=== PATIENT | female | born 1965 | race Caucasian/White ===

== ENCOUNTER → 2020-01-28 | Outpatient (CLI) | payer OTHER | LOC: LAB 12:03 | DX: Z20.828 Contact with and (suspected) exposure to other viral communicable diseases (principal) ==

== ENCOUNTER → 2021-12-12 | Outpatient (CLI) | payer OTHER ==
[2021-12-12 08:14] LABS: HEMATOCRIT 45.2 % (37.0-47.0); HEMOGLOBIN 15.3 g/dL (12.5-16.0); MEAN PLATELET VOLUME 9.9 fl (7.4-10.4); RED BLOOD COUNT 4.9 M/mm3 (4.10-5.30); RED CELL DISTRIBUTION WIDTH 13.3 % (11.5-14.5); WHITE BLOOD COUNT 9.2 K/mm3 (4.8-10.8)
[2021-12-12 08:15] LABS: ALBUMIN 4.4 g/dL (3.5-5.0); POTASSIUM 4.5 mmol/L (3.5-5.1)
[2021-12-12 08:18] LABS: TOTAL PROTEIN 7.2 g/dL (6.4-8.3)
[2021-12-12 08:20] LABS: TOTAL BILIRUBIN 1.1 mg/dL (0.2-1.2)
[2021-12-12 09:21] LABS: URINE APPEARANCE CLOUDY; URINE COLOR YELLOW
[2021-12-12 09:22] LABS: URINE BILIRUBIN NEGATIVE (NEGATIVE); URINE BLOOD NEGATIVE (NEGATIVE); URINE GLUCOSE NEGATIVE (NEGATIVE); URINE KETONE NEGATIVE (NEGATIVE); URINE LEUKOCYTE ESTERASE 1+ (NEGATIVE); URINE MUCUS PRESENT (NOT PRESENT); URINE NITRATE NEGATIVE (NEGATIVE); URINE PROTEIN(semi-quant) TRACE (NEGATIVE); URINE UROBILINOGEN NORMAL (NORMAL); URINE WBC 31-50 /hpf (0-3)
== END ==
LOC: LAB 06:47
PROVIDERS: Family Medicine
DX: Z00.00 Encounter for general adult medical examination without abnormal findings (principal)